=== PATIENT | female | born 1985 | race Caucasian/White ===

== ENCOUNTER 2016-07-14 00:17 | Inpatient (IN) | payer OTHER ==
[2016-07-14] MEDS ORDERED: OXYTOCIN 10 UNITS/ML VIAL IM ONE (00:34)
[2016-07-14] MEDS ORDERED: MINERAL OIL 25 ML BOT ONE (00:37)
[2016-07-14] MEDS ORDERED: LIDOCAINE Viscous 2% 15 ML UDCUP ONE (00:38)
[2016-07-14] MEDS ORDERED: LIDOCAINE 1% (PRES FREE) 30 ML VIAL ONE (00:38)
[2016-07-14] MEDS ORDERED: PUMP TUBING ONE (00:38)
[2016-07-14] MEDS ORDERED: OXYTOCIN IN NS 500 ML IV ONE (00:38)
[2016-07-14] MEDS ORDERED: LIDOCAINE 1% (PRES FREE) 30 ML VIAL SUB-Q ONE (01:51)
[2016-07-14 02:40] VITALS: BMI 27.8
[2016-07-14] MEDS ORDERED: DIPHTH,PERTUSS(ACELL),TET VAC 0.5 ML VIAL IM V ONE (02:40)
[2016-07-14] MEDS ORDERED: LANOLIN 50 APPLIC/7G TUBE TP PRN (02:40)
[2016-07-14] MEDS ORDERED: MAGNESIUM HYDROXIDE 30 ML UDCUP PO PRN (02:40)
[2016-07-14] MEDS ORDERED: MEASLES,MUMPS&RUBELLA VACCINE 0.5 ML VIAL SUB-Q V ONE (02:40)
[2016-07-14] MEDS ORDERED: ACETAMINOPHEN 325 MG TABLET PO PRN (02:40)
[2016-07-14] MEDS ORDERED: BENZOCAINE/MENTHOL 60 APPLIC/BOT TP PRN (02:40)
[2016-07-14] MEDS ORDERED: OXYTOCIN IN NS 167 ML IV PRN (02:40)
[2016-07-14] MEDS ORDERED: CALCIUM CARBONATE 500 MG TAB.CHEW PO PRN (02:40)
--- NOTE | 2016-07-14 04:10 | PCMAN ---
OB Admission Note - History : 3 Term: 2 : 0 Abortions (S&E): 1 Livin EDC:: 07/10/16 Gestational Age (weeks): 40 Days (#/7): 4 Admit Cervical Dilation:: 8 Admit Cervical Effacement (%):: 100 Admit Station:: -1 Admit Presentaton:: vertex Membrane Status: Bulging Rupture (Date): 07/14/16 Rupture (Time): 01:10 Membranes Comment:: clear, rocekting across room Labor Onset (Date): 07/14/16 Labor Onset (Time): 22:00 Contractions: Yes Contraction Frequency:: q 2-3 mins palpating strong Heart Rate:: 145 (moderate variability, pos accels neg decels) Status:: Cat 1 EFW:: 8 lbs Summary of Course:: Nicki is a at 40w4d. She initiated care with the midwives at12 weeks for a total of 14 visits. Her pre- BMI was 21.1 with a total weight gain of 43 lbs. Dates were by sure LMP. 20 week anatomy scan WNL and consistent with dates. She declined genetic testing. She desires a tubal ligation at 6 weeks . This was complicated by: Exposure to viral meningitis today Earlier today before labor began, Nicki called to report that she had shared food with her 16 year-old niece at lunch. This evening the niece was treated in the ED for viral meningitis. Bacterial cultures are not yet available but Nicki's family is telling her that the ED is saying the meningitis appears to be viral based on clinical symptoms. I consulted with the on-call OB, the [facility], [facility] infectious disease and [facility] and all agree that there is no prophylactic treatment that is appropriate for this situation. Nicki was advised to monitor for symptoms and present to the ED if she were to have any. 2 hours later she had called to state that the was coming to the [facility] in active labor. [employer] Hx: 2009 uncomplicated 2011 SAB 2012 uncomplicated Last Pap 09/20/2013 WNL and HPV neg No STIs Social Hx: Former smoker, quit September 2015 - Labs Blood Type: A (+) positive Hct/Hgb:: 10.8 Rubella Status: Immune GBS Status: Negative Abnormal Labs: None - Review of Systems Complete ROS is negative except for abdominal pain described as contractions. She denies leaking of fluid or vaginal bleeding. - Physical Exam General: Afebrile Psych/Mental Status: Mood/Affect Appropriate, Judgment/Insight Intact Neurological: Grossly Intact, Alert, Oriented x 4 HEENT: Atraumatic, PERRLA Lungs: Clear to Auscultation Bilaterally, Normal Air Movement Cardiovascular: Regular Rate and Rhythm, Normal S1, Normal S2 Genitourinary: Normal Female Genitalia Rectal Exam: Deferred Extremities: Full ROM Skin: Normal Color - Problems (1) Active labor at term Status: Acute Code: [id number]/Plan: A:Undelivered IUP at 40w4d Active Labor Intact Membranes Fetus Cat 1 GBS negative Exposure to viral meningitis P: Admit to [facility] cEFM due to auscultated decrease with pushing Droplet precautions for meningitis exposure. Anticipate
--- NOTE | 2016-07-14 04:21 | PCMDEL ---
Delivery Note - Labor 1st stage (hr/min):: 2 hrs 57 minutes 2nd stage (hr/min):: 32 mins 3rd stage (hr/min):: 8 mins Total (hr/min):: 3 hours 29 minutes Pushed (hr/min):: 29 minutes - Delivery Delivery (Date): 07/14/16 Delivery (Time): 01:29 Gender: Male Weight: 7 lb 15 oz Length: 1 ft 8 in Presentation: Cephalic Position: OA Umbilical Cord: 3 Vessel Delayed Cord Clamping:: > 3 min 1 Minute Total: 9 5 Minute Total: 9 Placenta:: shultze, grossly intact EBL:: 50mL Perineum:: 1st degree perineal lac Suture:: 3-0 chromic Anesthesia/Meds:: none for labor, lidocaine for repair Length ROM:: 18 minutes Comments:: First Stage: Nicki presented to [facility] at SVE of [id number]/-1 station with spontaneous onset of contraction in active labor. By the time she was moved from triage to her labor room, she was feeling the urge to push. Fetus Category 1 throughout first stage. Nicki was complete at 0057 Stage Two: Nicki spontaneously pushed with contractions with good effort and descent. Controlled delivery of the head, of vigorous male, OA. [place]ers delivery easily with the next maternal effort and the body easily followed. delivered to maternal abdomen and placed skin to skin. Delayed cord clamping. Cord cut and cord blood collected. Stage Three: With spontaneous signs of separation the placenta was delivered with gentle traction. AMTSL was not performed. Fundus firm and midline. Very minimal bleeding. Vaginal vault and perineum inspected and found to be intact except for small first degree perineal laceration. This was repaired with one stitch using lidocaine anesthesia. Skin to skin maintained and infant went to breast withing the first 30 minutes of life. Mother and both bonding well and in excellent condition. QBL 50mL Post delivery pause completed and correct.
[2016-07-14] MEDS: DOCUSATE SODIUM 100 MG CAPSULE PO SCH (18:16)
[2016-07-15] MEDS: IBUPROFEN 800 MG TABLET PO PRN ×3 (00:54→16:48)
[2016-07-15] MEDS: DOCUSATE SODIUM 100 MG CAPSULE PO SCH (07:54)
--- NOTE | 2016-07-15 21:35 | PDOC44 ---
- Subjective Day: 1 (Stable) Up walking with baby. Reports bleeding and pain are minimal. is going well. Desires discharge tomorrow. Reports Flatus, Reports Pain Tolerable, Reports , Reports Lochia Light, Reports Tolerating Regular Diet - Objective Temp Pulse Resp BP Pulse Ox 98.2 F 121 18 106/70 07/15/16 19:34 07/15/16 19:34 07/15/16 19:34 07/15/16 19:34 Current Medications Generic Name Dose Route Start Last Admin Trade Name Freq PRN Reason Stop Dose Admin Acetaminophen 325 - 650 mg 07/14/16 02:40 Tylenol PO Q4H PRN Pain (Mild) Benzocaine/Menthol 1 applic 07/14/16 02:40 Dermoplast TP PRN PRN Patient Comfort Calcium Carbonate/Glycine 500 - 1,000 mg 07/14/16 02:40 07/14/16 07:06 Tums PO 1,000 mg BID PRN Administration Indigestion Docusate Sodium 100 mg 07/14/16 09:00 07/15/16 07:54 Colace PO 100 mg DAILY DOROTHY Administration Emollient Ointment 1 applic 07/14/16 02:40 Tvb-[id number]-Cytqix TP PRN PRN sore nipples OXYTOCIN IN NS 167 mls @ 167 mls/hr 07/14/16 02:40 Oxytocin-Ns 30 Unit/500 Ml IV X1 PRN Bleeding/3rd stage labor Ibuprofen 800 mg 07/14/16 02:40 07/15/16 16:48 Motrin PO 800 mg Q6H PRN Administration Pain (Mild) Magnesium Hydroxide 30 ml 07/14/16 02:40 Milk Of Magnesia PO BEDTIME PRN Constipation Sodium Chloride 10 ml 07/14/16 02:40 Normal Saline 10ml Flush IV PRN PRN IV Flush Sodium Chloride 10 ml 07/14/16 09:00 Normal Saline 10ml Flush IV Q8HR DOROTHY - Physical Exam General: Afebrile Psych/Mental Status: Mood/Affect Appropriate, Judgment/Insight Intact, Bonding Well Neurological: Grossly Intact, Alert, Oriented x 4, Normal Gait, Normal Speech Lungs: Clear to Auscultation Bilaterally Cardiovascular: Regular Rate and Rhythm Breast: Soft, Skin intact, Nipples Intact Fundus: Firm, Midline, Below Umbilicus - Problems:Assessment/Plan (1) (normal spontaneous vaginal delivery) Status: AcuteAssessment/Plan: S: day #1 s/p exclusively stable P: Reviewed normal recovery plans d/c tomorrow Disposition: Stable, Anticipate DC Home Tomorrow
[2016-07-16] MEDS: IBUPROFEN 800 MG TABLET PO PRN ×2 (00:43→07:33)
[2016-07-16] MEDS ORDERED: DIPHTH,PERTUSS(ACELL),TET VAC 0.5 ML VIAL IM V ONE (08:50)
[2016-07-16] MEDS: DOCUSATE SODIUM 100 MG CAPSULE PO SCH ×2 (09:41→10:15)
[2016-07-16 10:48] VITALS: BP 110/61
--- NOTE | 2016-07-16 12:32 | PDOC39B ---
Hospital Course: ADMIT DATE: 07/14/16 DISCHARGE DATE: 07/16/2016 ADMISSION DIAGNOSES: active labor at term PROCEDURES: 1st degree perineal lac, repaired HISTORY OF PRESENT ILLNESS: 30 year old G3 T2 L2 at 40 weeks 4 days presenting with active labor at term. Rapid progress to [facility] over perineum with 1st degree perineal laceration, repaired. HOSPITAL COURSE: The patient is exclusively, doing well. By day of discharge the patient is ambulating, eating, voiding, and passing flatus without difficulty. Pain is controlled and lochia is appropriate. - Physical Exam Vital Signs: Temp Pulse Resp BP Pulse Ox 98.4 F 121 16 117/69 07/16/16 01:24 07/16/16 01:24 07/16/16 01:24 07/16/16 01:24 General: Afebrile Psych/Mental Status: Mood/Affect Appropriate, Judgment/Insight Intact, Bonding Well Neurological: Grossly Intact, Alert, Oriented x 4 HEENT: Atraumatic Lungs: Clear to Auscultation Bilaterally, Normal Air Movement Cardiovascular: Regular Rate and Rhythm, Normal S1, Normal S2 Breast: Soft Fundus: Firm, Firm with Massage, Below Umbilicus Abdomen: Normal Bowel Sounds Genitourinary: Normal Female Genitalia Lochia: Light Rectal Exam: Deferred Extremities: Full ROM Skin: Normal Color - Discharge Diagnosis (1) care following vaginal delivery Status: AcuteAssessment/Plan: A: s/p on 07/14 Normal PP recovery P: D/c to home care today follow up with 2wPP visit scheduled Plans BTL at 6wPP Midwifery 'After the ' handout given to patient. - Discharge Plan Condition: Stable Disposition: Home Instruction Forms: Vaginal Discharge Instructions Follow-Up: Carlita De Jesus CNM [Certified Nurse Digital Intern] - As scheduled (Wednesday, July 27, 2016 at 1pm at the [place] [facility]. Please call [phone] if time is inconvenient)
== END 2016-07-16 11:49 | disposition home or self-care (01) | DRG 775 ==
LOC: FBCOUT 00:17 → FBC 00:17 → FBCOUT 00:30 → FBC 01:37
PROVIDERS: ADMIT Advanced Practice Midwife; ATTEND Advanced Practice Midwife
PROC: 10E0XZZ Delivery of Products of Conception, External Approach (ICD-10-PCS; principal; 2016-07-14)
PROC: 0HQ9XZZ Repair Perineum Skin, External Approach (ICD-10-PCS; 2016-07-14)
DX: O75.89 Other specified complications of labor and delivery (principal); Z20.828 Contact with and (suspected) exposure to other viral communicable diseases; O70.0 First degree perineal laceration during delivery; Z37.0 Single live birth; Z3A.40 40 weeks gestation of pregnancy